=== PATIENT | male | born 1940 | race Caucasian/White ===

== ENCOUNTER → 2018-07-11 08:10 | Outpatient (CLI) | payer OTHER, SELFPAY ==
[2018-07-11 09:56] LABS: Alanine Aminotransferase 25 IU/L (21-72); Albumin 4.4 g/dL (3.5-5.0); Albumin Globulin Ratio 1.6 (1.0-2.8); Alkaline Phosphatase 58 U/L (38-126); Aspartate Aminotransferase 31 IU/L (17-59); BUN Creatinine Ratio 22.9 (6-22); Bilirubin Total 0.8 mg/dL (0.2-1.3); Blood Urea Nitrogen 16 mg/dL (9-20); Carbon Dioxide 29 mmol/L (22-32); Chloride 101 mmol/L (98-107); Estimated Glomerular Filt Rate > 60.0 mL/min (>60); Globulin 2.8 g/dL (1.7-4.1); Glucose 122 mg/dL (80-110); HEMOLYSIS 26 (0-50); Sodium 139 mmol/L (137-145); Total Protein 7.2 g/dL (6.3-8.2)
[2018-07-11 10:03] LABS: Vitamin D 25 Hydroxy (D3) 32.7 ng/mL (30.0-100.0)
== END ==
PROVIDERS: PCP Student in an Organized Health Care Education/Training Program; Visit Provider Student in an Organized Health Care Education/Training Program
DX: E78.5 Hyperlipidemia, unspecified (principal); N40.1 Benign prostatic hyperplasia with lower urinary tract symptoms; E55.9 Vitamin D deficiency, unspecified; Z79.899 Other long term (current) drug therapy
CPT/HCPCS: 36415; 80053; 82306

== ENCOUNTER → 2019-11-27 09:43 | Outpatient (CLI) | payer OTHER, SELFPAY ==
[2019-11-27 11:15] LABS: BUN Creatinine Ratio 16.7 (6-22); Blood Urea Nitrogen 12 mg/dL (9-20); Calcium 8.9 mg/dL (8.4-10.2); Carbon Dioxide 31 mmol/L (22-32); Chloride 102 mmol/L (98-107); Estimated Glomerular Filt Rate > 60.0 mL/min (>60); Glucose 99 mg/dL (80-110); HEMOLYSIS < 15 (0-50); Potassium 4.1 mmol/L (3.4-5.1); Sodium 138 mmol/L (137-145)
== END ==
PROVIDERS: PCP Student in an Organized Health Care Education/Training Program; Referring Provider Student in an Organized Health Care Education/Training Program; Visit Provider Student in an Organized Health Care Education/Training Program
DX: Z79.899 Other long term (current) drug therapy (principal)
CPT/HCPCS: 36415; 80048

== ENCOUNTER → 2021-02-08 10:39 | Outpatient (CLI) | payer OTHER, SELFPAY ==
[2021-02-08 11:34] LABS: Hematocrit 46.7 % (41-53); Hemoglobin 15.9 g/dL (13.5-17.5); Mean Corpuscular HGB Conc 34.1 % (30-36); Mean Corpuscular Hemoglobin 31.3 PG (26-34); Mean Corpuscular Volume 91.6 fL (80-100); Platelet Count 156 X10^3/uL (150-400); Red Cell Distribution Width 13.1 % (11.6-14.8); White Blood Cell Count 7.4 X10^3/uL (4.5-11.0)
[2021-02-08 12:10] LABS: BUN Creatinine Ratio 16.3 (6-22); Blood Urea Nitrogen 13 mg/dL (9-20); Calcium 9.2 mg/dL (8.4-10.2); Carbon Dioxide 31 mmol/L (22-32); Chloride 103 mmol/L (98-107); Cholesterol 170 mg/dL (140-199); Estimated Glomerular Filt Rate > 60.0 mL/min (>60); Glucose 106 mg/dL (80-110); HDL Cholesterol 55 mg/dL (40-60); HEMOLYSIS < 15 (0-50); LDL Cholesterol Calculated 93 mg/dL (<100); Potassium 4.3 mmol/L (3.4-5.1); Sodium 139 mmol/L (137-145); Triglycerides 109 mg/dL (35-150)
== END ==
PROVIDERS: PCP Student in an Organized Health Care Education/Training Program; Referring Provider Student in an Organized Health Care Education/Training Program; Visit Provider Student in an Organized Health Care Education/Training Program
DX: E78.5 Hyperlipidemia, unspecified (principal); Z79.899 Other long term (current) drug therapy
CPT/HCPCS: 36415; 80048; 80061; 85027

== ENCOUNTER 2021-11-29 15:30 | Outpatient (RCR) | payer OTHER, SELFPAY ==
--- NOTE | 2021-07-28 16:24 | ST.OPIE ---
Visit Care Team Role Provider Type Ángel Barton MD Attending Provider Physician Family Provider Primary Care Provider Referring Provider Specialty: Internal Medicine Address: [address] [place] [address], [address], [place], [address] Email: [email or web address] Speech-Language Pathology Initial Evaluation SOFTWARE REQUIREMENTS ENGINEER Adult Cognitive Linguistic Eval Start: 07/28/21 12:59 Freq: Status: Active Protocol: Document 07/28/21 13:00 MG (Rec: 07/28/21 13:23 MG [id number]) Adult Cognitive Linguistic Evaluation Session Time Visit Start Time 08:30 Visit Stop Time 09:30 Total Visit Minutes 60 Visit Information Visit Number 1 Plan of Care Dates 07/28/2021-11/27/[address] [facility] Setting Assessment Location Outpatient Care Visit Type Note Type Initial evaluation Next Note Type Next Note Type Treatment Note Patient Information Identification Type Name Patient History Pt reports that about a year prior, he has noticed cognitive difficulties, specifically around short term memory and word retrieval abilities. He reports he has the hardest time following recipes for cooking, remembering names or people, math calculations, and learning/retaining new information. 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 He reports he will often misplace tools and get frustrated trying to find them when he needs them. Pt has no prior history of memory difficulties , but does note his has Alzheimers. He reportedly lives in his home by himself. Pt currently uses a monthly interstate planner and hard copies of appointments to remember events. Pt also reported he has a large white board at home with all to-do items ( appointments, grocery lists, etc) that he will check multiple times daily when he needs to. Language(s) Spoken in the Home [place] Education Level GERRY Occupation Status Retired Hearing Hearing Level Normal Vision Vision Status Impaired Comments Does wear glasses Previous Therapy Previous Speech-Language Therapy Yes History of Therapy Pt reports he was in in May or June (he cannot recall which month) and was assessed by our SOFTWARE REQUIREMENTS ENGINEER team. No records at this time - may have been in for the cognitive/memory screening which referred for further evaluation. Subjective Patient Report Pt appeared slightly fatigued, as noted by his slouched posture. Pt noted he was tired from not having slept well the night prior and thought that the fatigue was also playing a role in his cognitive abilities this morning. Pt brought a monthly calendar with him on this day. Of note, the pt did exhibit some word finding difficulties x3 during this evaluation period. 1 word did come to him later on in the session; the others did not. Mental Status Alert,Responsive,Cooperative Assessment Oral Motor Examination Completed Yes Results No deficits noted in informal examination. Informal Assessment Receptive Language Normal Yes Expressive Language Normal No Expressive Language Impairment(s) Confrontation naming,Divergent naming Pragmatic Language Normal Yes Speech Normal Yes Cognition Normal No Cognitive Impairment(s) Short-term memory,Thought organization Formal Assessment Standardized Test/Screener Type [facility] Mental Status ([facility]) Administration Complete Results - indicating mild cognitive deficits. The pt had the most difficulty with rapid naming and some short term memory recall, which aligns to his current complaints and difficulties. Findings/Results Language Function Within functional limits Cognitive Function Mildly impaired Findings Pt presents with mild cognitive impairments at this time which affect his ability to effectively complete ADLs and communication with others. Main difficulties affect short term memory recall and Cognitive Communication Deficits Self-awareness of Cognitive- Predictive awareness (able to Communication Deficits predict problem; impact of impairments) Impact on Functioning Activity Limits/Particip.Rest. Mild: General Tasks and Demands Household Tasks Interpersonal Interactions Prognosis Prognosis Good Based on Other (comment) Comment Motivation, skills/strategies already in place Plan of Care Speech-Language Treatment Yes Frequency 1xweekly Duration 45 minutes Patient/Caregiver Education Described results of evaluation,Patient expressed understanding of evaluation, Patient expressed agreement with goals and treatment plans ,Patient requires further education/training Short Term Goals 1) Pt will participate in further education re: cognitive abilities, how they affect tasks, and strategies to implement. 2) Pt will utilize word retrieval strategies with one verbal cue to help reduce communication breakdowns. 3) Pt will utilize strategies independently in 80% of opportunities to participate fully in ADLs and report minimal frustrations. 4) Shelter Goals 1) Pt will utilize word retrieval strategies independently to help reduce communication breakdowns. 2) Pt will utilize strategies independently in 100% of opportunities to participate fully in ADLs and report no frustrations that occur. Discharge Recommendations Home
--- NOTE | 2021-07-28 16:24 | ST.OPPOC ---
Physical, Occupational & Speech Therapy At [facility] Visit Care Team Role Provider Type Ángel Barton MD Attending Provider Physician Family Provider Primary Care Provider Referring Provider Address: [address] [place] [address], [address], [place], [address] Speech Pathology Plan of Care Plan of Care Dates 07/28/2021-11/27/2021 Patient History Pt reports that about a year prior, he has noticed cognitive difficulties, specifically around short term memory and word retrieval abilities. He reports he has the hardest time following recipies for cooking, remembering names or people, math calculations, and learning /retainng new information. 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 He reports he will often misplace tools and get frustrated trying to find them when he needs them. Pt has no prior history of memory difficulties, but does note his has Alzheimers. He reportedly lives in his home by himself. Pt currently uses a monthly urban and regional planner and hard copies of appointments to remember events. Pt also reported he has a large whiteboard at home with all to-do items (appointments, grocery lists, etc) that he will check multiple times daily when he needs to. Short Term Goals 1) Pt will participate in further education re: cognitive abilities, how they affect tasks, and strategies to implement. 2) Pt will utilize word retrieval strategies with one verbal cue to help reduce communication breakdowns. 3) Pt will utilize strategies independently in 80% of opportunities to participate fully in ADLs and report minimal frustrations. 4) Senior Care Goals 1) Pt will utilize word retrieval strategies independently to help reduce communication breakdowns. 2) Pt will utilize strategies independently in 100% of opportunities to participate fully in ADLs and report no frustrations that occurr. Comment: Electronically Signed by: MILLER Soriano 07/28/21 [id number] If you are in agreement with this Plan of Care, please return a signed and dated copy. I have reviewed this Plan of Care and certify that the skilled therapy services above are required to meet the patient?s needs. Physician Signature Date Printed Name and Credentials Clinical Instructor Signature Printed Name and Credentials
--- NOTE | 2021-08-05 09:43 | ST.OPTN ---
Visit Care Team Role Provider Type Ángel Barton MD Attending Provider Physician Family Provider Primary Care Provider Referring Provider Address: [address] [place] [address], [address], [place], [address] DYE MAKER Treatment Note DYE MAKER Treatment Note Start: 07/28/21 12:59 Freq: Status: Active Protocol: Document 08/05/21 09:34 MG (Rec: 08/05/21 09:41 MG [id number]) Speech Pathology Treatment Note Session Time Visit Start Time 08:30 Visit Stop Time 09:30 Total Visit Minutes 60 Visit Information Visit Number 2 Plan of Care Dates 07/28/2021-11/27/2021 Setting Treatment Setting Outpatient Care Next Note Type Next Note Type Treatment Note General Information Patient History Pt reports that about a year prior, he has noticed cognitive difficulties, specifically around short term memory and word retrieval abilities. He reports he has the hardest time following recipes for cooking, remembering names or people, math calculations, and learning/retaining new information. 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 He reports he will often misplace tools and get frustrated trying to find them when he needs them. Pt has no prior history of memory difficulties , but does note his has Alzheimers. He reportedly lives in his home by himself. Pt currently uses a monthly airport planner and hard copies of appointments to remember events. Pt also reported he has a large whiteboard at home with all to-do items ( appointments, grocery lists, etc) that he will check multiple times daily when he needs to. Subjective Observations/Patient Presentation Vinay was on time to his appointment on this day. He reported to be tired as he had lost sleep over a technology problem he was dealing with. Patient Knowledge/Awareness of DYE MAKER Role Excellent in Treatment Parent/Caretake Knowledge/Awareness of Excellent DYE MAKER Role in Treatment Patient/Caregiver Compliance with Home Excellent Exercise Program Objective Short Term Goals 1) Pt will participate in further education re: cognitive abilities, how they affect tasks, and strategies to implement. 2) Pt will utilize word retrieval strategies with one verbal cue to help reduce communication breakdowns. 3) Pt will utilize strategies independently in 80% of opportunities to participate fully in ADLs and report minimal frustrations. 4) Skilled Nursing Goals 1) Pt will utilize word retrieval strategies independently to help reduce communication breakdowns. 2) Pt will utilize strategies independently in 100% of opportunities to participate fully in ADLs and report no frustrations that occur. Treatment Activities Vinay came in today and reported to this DYE MAKER about the things he had implemented from his previous appointment. He noted that keeping a journal, writing notes as reminders, describing words he can't remember the name of, and trying to get more rest are the most helpful for him. Vinay utilized strategies independently during this session for word finding difficulties. Vinay reported some frustrations still, such as forgetting steps in projects, but overall reported to be feeling less frustrated this past week with the new tools he has (i.e., slowing down when cooking/baking, making notes for memory, finding homes for items). DYE MAKER provided GPDR activity as he reported one thing that continues to be frustrating for him is steps of projects. Assessment Patient Response to Treatment Excellent Rehab Potential Good Impairments Identified Cognitive communication Progress Towards Goals Excellent Progress Assessment of Overall Progress Improving Assessment of Improvement Vinay implements and utilizes strategies immediately and already has noticed some differences in his abilities. He is very motivated in sessions, engaged in conversations, and asks clarifying questions when needed. Reviewed with Patient Goals,Progress Being Made,Home Exercise Program Patient/Caregiver Understanding Excellent Plan Amount of Therapy Recommended 4 Months Frequency of Treatment Once a Week Length of Session 45 Minutes Therapeutic Contents Cognitive-Linguistic Training, Home Exercise Program Provided Patient/Caregiver Instruction Home Exercise Program,Plan of Care,Questions/Concerns Therapy Recommendations Continue with Current Program
--- NOTE | 2021-08-11 12:18 | ST.OPTN ---
Visit Care Team Role Provider Type Ángel Barton MD Attending Provider Physician Family Provider Primary Care Provider Referring Provider Address: [address] [place] [address], [address], [place], [address] ADHESIVE BONDING MACHINE OPERATOR Treatment Note ADHESIVE BONDING MACHINE OPERATOR Treatment Note Start: 07/28/21 12:59 Freq: Status: Active Protocol: Document 08/11/21 11:32 MG (Rec: 08/11/21 12:18 MG [id number]) Speech Pathology Treatment Note Session Time Visit Start Time 10:30 Visit Stop Time 11:25 Total Visit Minutes 55 Visit Information Visit Number 3 Plan of Care Dates 07/28/2021-11/27/2021 Setting Treatment Setting Outpatient Care Next Note Type Next Note Type Treatment Note General Information Patient History Pt reports that about a year prior, he has noticed cognitive difficulties, specifically around short term memory and word retrieval abilities. He reports he has the hardest time following recipes for cooking, remembering names or people, math calculations, and learning/retaining new information. 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 He reports he will often misplace tools and get frustrated trying to find them when he needs them. Pt has no prior history of memory difficulties , but does note his has Alzheimers. He reportedly lives in his home by himself. Pt currently uses a monthly enterprise resource planner and hard copies of appointments to remember events. Pt also reported he has a large whiteboard at home with all to-do items ( appointments, grocery lists, etc) that he will check multiple times daily when he needs to. Subjective Observations/Patient Presentation Vinay was on time to his appointment on this day. He reported to be tired today again, but is working on getting more sleep and naps. Chief Complaint(s) Cognitive Patient Knowledge/Awareness of ADHESIVE BONDING MACHINE OPERATOR Role Excellent in Treatment Parent/Caretake Knowledge/Awareness of Excellent ADHESIVE BONDING MACHINE OPERATOR Role in Treatment Patient/Caregiver Compliance with Home Excellent Exercise Program Objective Short Term Goals 1) Pt will participate in further education re: cognitive abilities, how they affect tasks, and strategies to implement. 2) Pt will utilize word retrieval strategies with one verbal cue to help reduce communication breakdowns. 3) Pt will utilize strategies independently in 80% of opportunities to participate fully in ADLs and report minimal frustrations. 4) Windows Administrator Goals 1) Pt will utilize word retrieval strategies independently to help reduce communication breakdowns. 2) Pt will utilize strategies independently in 100% of opportunities to participate fully in ADLs and report no frustrations that occur. Treatment Activities ADHESIVE BONDING MACHINE OPERATOR and Vinay went over GPDR for tasks he worked on this week (i.e., developing an irrigation system for his garden). Used strategies effectively and independently. Did not have any word finding difficulties in this session. Discussed how he still gets frustrating learning things on his phone so discussed keeping a list of what he wants to learn on it and bring in next week to review and practice. Assessment Patient Response to Treatment Excellent Rehab Potential Good Impairments Identified Cognitive communication Progress Towards Goals Excellent Progress Assessment of Overall Progress Improving Assessment of Improvement Vinay implements and utilizes strategies immediately and already has noticed some differences in his abilities. He is very motivated in sessions, engaged in conversations, and asks clarifying questions when needed. Reviewed with Patient Goals,Progress Being Made,Home Exercise Program Patient/Caregiver Understanding Excellent Plan Amount of Therapy Recommended 4 Months Frequency of Treatment Once a Week Length of Session 45 Minutes Therapeutic Contents Cognitive-Linguistic Training, Home Exercise Program Provided Patient/Caregiver Instruction Home Exercise Program,Plan of Care,Questions/Concerns Therapy Recommendations Continue with Current Program
--- NOTE | 2021-08-19 10:49 | ST.OPTN ---
Visit Care Team Role Provider Type Ángel Barton MD Attending Provider Physician Family Provider Primary Care Provider Referring Provider Address: [address] [place] [address], [address], [place], [address] INSTALLER MOLDING AND TRIM Treatment Note INSTALLER MOLDING AND TRIM Treatment Note Start: 07/28/21 12:59 Freq: Status: Active Protocol: Document 08/19/21 08:36 LNK (Rec: 08/19/21 10:49 LNK [id number]) Speech Pathology Treatment Note Session Time Visit Start Time 10:30 Visit Stop Time 11:25 Total Visit Minutes 55 Visit Information Visit Number 3 Plan of Care Dates 07/28/2021-11/27/2021 Setting Treatment Setting Outpatient Care Next Note Type Next Note Type Treatment Note General Information Patient History Pt reports that about a year prior, he has noticed cognitive difficulties, specifically around short term memory and word retrieval abilities. He reports he has the hardest time following recipies for cooking, remembering names or people, math calculations, and learning/retainng new information. 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 He reports he will often misplace tools and get frustrated trying to find them when he needs them. Pt has no prior history of memory difficulties , but does note his has Alzheimers. He reportedly lives in his home by himself. Pt currently uses a monthly category planner and hard copies of appointments to remember events. Pt also reported he has a large whiteboard at home with all to-do items ( appointments, grocery lists, etc) that he will check multiple times daily when he needs to. Subjective Observations/Patient Presentation Vinay was on time to his appointment on this day. He reported to be tired today again, but is working on getting more sleep and naps. Chief Complaint(s) Cognitive Patient Knowledge/Awareness of INSTALLER MOLDING AND TRIM Role Excellent in Treatment Parent/Caretake Knowledge/Awareness of Excellent INSTALLER MOLDING AND TRIM Role in Treatment Patient/Caregiver Compliance with Home Excellent Exercise Program Objective Short Term Goals 1) Pt will participate in further education re: cognitive abilities, how they affect tasks, and strategies to implement. 2) Pt will utilize word retrieval strategies with one verbal cue to help reduce communication breakdowns. 3) Pt will utilize strategies independently in 80% of opportunities to participate fully in ADLs (i.e. working with his phone) and report minimal frustrations. 4) Rotary Drier Feeder Goals 1) Pt will utilize strategies independently in 100% of opportunities to participate fully in ADLs and report no frustrations that occur. 2) Pt will utilize word retrieval strategies independently to help reduce communication breakdowns. Treatment Activities Pt still gets frustrating learning things on his phone. Targeted taking pictures with phone, editing pictures and sending pictures via texting. Will target emailing. Step by step instructions, defining icons and practiced entire process x3 with pt. Homework to play with pictures /texting, etc Assessment Patient Response to Treatment Excellent Rehab Potential Good Impairments Identified Cognitive communication Progress Towards Goals Excellent Progress Assessment of Overall Progress Improving Assessment of Improvement Vinay is very motivated in sessions, engaged in conversations, and asks clarifying questions when needed. Reviewed with Patient Goals,Progress Being Made,Home Exercise Program Patient/Caregiver Understanding Excellent Plan Amount of Therapy Recommended 4 Months Frequency of Treatment Once a Week Length of Session 45 Minutes Therapeutic Contents Cognitive-Linguistic Training, Home Exercise Program Provided Patient/Caregiver Instruction Home Exercise Program,Plan of Care,Questions/Concerns Therapy Recommendations Continue with Current Program
--- NOTE | 2021-08-24 16:53 | ST.OPTN ---
Visit Care Team Role Provider Type Ángel Barton MD Attending Provider Physician Family Provider Primary Care Provider Referring Provider Address: [address] [place] [address], [address], [place], [address] RECIPROCATING DRILL OPERATOR Treatment Note RECIPROCATING DRILL OPERATOR Treatment Note Start: 07/28/21 12:59 Freq: Status: Active Protocol: Document 08/24/21 16:43 LNK (Rec: 08/24/21 16:53 LNK [id number]) Speech Pathology Treatment Note Session Time Visit Start Time 10:30 Visit Stop Time 11:25 Total Visit Minutes 60 Visit Information Visit Number 4 Plan of Care Dates 07/28/2021-11/27/2021 Setting Treatment Setting Outpatient Care Next Note Type Next Note Type Treatment Note General Information Patient History Pt reports that about a year prior, he has noticed cognitive difficulties, specifically around short term memory and word retrieval abilities. He reports he has the hardest time following recipes for cooking, remembering names or people, math calculations, and learning/retaining new information. 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 He reports he will often misplace tools and get frustrated trying to find them when he needs them. Pt has no prior history of memory difficulties , but does note his has Alzheimers. He reportedly lives in his home by himself. Pt currently uses a monthly regional planner and hard copies of appointments to remember events. Pt also reported he has a large white board at home with all to-do items ( appointments, grocery lists, etc) that he will check multiple times daily when he needs to. Subjective Observations/Patient Presentation Vinay was on time to his appointment on this day. He reported to be tired today again, but is working on getting more sleep and naps. Chief Complaint(s) Cognitive Patient Knowledge/Awareness of RECIPROCATING DRILL OPERATOR Role Excellent in Treatment Parent/Caretake Knowledge/Awareness of Excellent RECIPROCATING DRILL OPERATOR Role in Treatment Patient/Caregiver Compliance with Home Excellent Exercise Program Objective Short Term Goals 1) Pt will participate in further education re: cognitive abilities, how they affect tasks, and strategies to implement. 2) Pt will utilize word retrieval strategies with one verbal cue to help reduce communication breakdowns. 3) Pt will utilize strategies independently in 80% of opportunities to participate fully in ADLs (i.e. working with his phone) and report minimal frustrations. 4) Terminal Manager Goals 1) Pt will utilize strategies independently in 100% of opportunities to participate fully in ADLs and report no frustrations that occur. 2) Pt will utilize word retrieval strategies independently to help reduce communication breakdowns. Treatment Activities . Continued with targeting texting pictures to his friends and family from his cell phone. Pt expressed frustration with the process. Reviewed written directions and explanations of icons. Step by step instructions, defining icons and practiced entire process x3 with pt. Homework to play with pictures /texting, etc Assessment Patient Response to Treatment Excellent Rehab Potential Good Impairments Identified Cognitive communication Progress Towards Goals Excellent Progress Assessment of Overall Progress Improving Assessment of Improvement Vinay is very motivated in sessions, engaged in conversations, and asks clarifying questions when needed. Reviewed with Patient Goals,Progress Being Made,Home Exercise Program Patient/Caregiver Understanding Excellent Plan Amount of Therapy Recommended 4 Months Frequency of Treatment Once a Week Length of Session 45 Minutes Therapeutic Contents Cognitive-Linguistic Training, Home Exercise Program Provided Patient/Caregiver Instruction Home Exercise Program,Plan of Care,Questions/Concerns Therapy Recommendations Continue with Current Program
--- NOTE | 2021-08-31 14:08 | ST.OPTN ---
Addendum entered and electronically signed by Lisa Olvera 09/01/21 15:38: Pt texted me successfully after he returned home! Original Note: Visit Care Team Role Provider Type Ángel Barton MD Attending Provider Physician Family Provider Primary Care Provider Referring Provider Address: [address] [place] [address], [address], [address] MANAGER ORDER Treatment Note MANAGER ORDER Treatment Note Start: 07/28/21 12:59 Freq: Status: Active Protocol: Document 08/31/21 14:02 SHANEK (Rec: 08/31/21 14:08 LNK [id number]) Speech Pathology Treatment Note Session Time Visit Start Time 10:30 Visit Stop Time 11:25 Total Visit Minutes 60 Visit Information Visit Number 5 Plan of Care Dates 07/28/2021-11/27/2021 Setting Treatment Setting Outpatient Care Next Note Type Next Note Type Treatment Note General Information Patient History Pt reports that about a year prior, he has noticed cognitive difficulties, specifically around short term memory and word retrieval abilities. He reports he has the hardest time following recipies for cooking, remembering names or people, math calculations, and learning/retainng new information. 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 He reports he will often misplace tools and get frustrated trying to find them when he needs them. Pt has no prior history of memory difficulties , but does note his has Alzheimers. He reportedly lives in his home by himself. Pt currently uses a monthly order planner and hard copies of appointments to remember events. Pt also reported he has a large whiteboard at home with all to-do items ( appointments, grocery lists, etc) that he will check multiple times daily when he needs to. Subjective Observations/Patient Presentation . Chief Complaint(s) Cognitive Patient Knowledge/Awareness of MANAGER ORDER Role Excellent in Treatment Parent/Caretake Knowledge/Awareness of Excellent MANAGER ORDER Role in Treatment Patient/Caregiver Compliance with Home Excellent Exercise Program Objective Short Term Goals 1) Pt will participate in further education re: cognitive abilities, how they affect tasks, and strategies to implement. 2) Pt will utilize word retrieval strategies with one verbal cue to help reduce communication breakdowns. 3) Pt will utilize strategies independently in 80% of opportunities to participate fully in ADLs (i.e. working with his phone) and report minimal frustrations. 4) Care Home Goals 1) Pt will utilize strategies independently in 100% of opportunities to participate fully in ADLs and report no frustrations that occur. 2) Pt will utilize word retrieval strategies independently to help reduce communication breakdowns. Treatment Activities Continued targeting Pt's use of his phone(texting) to communicate with his family and friends. Reviewed step by step instructions. Pt practiced entire sequence 7x successfully by the end of the session Homework to text e family members Assessment Patient Response to Treatment Excellent Rehab Potential Good Impairments Identified Cognitive communication Progress Towards Goals Excellent Progress Assessment of Overall Progress Improving Assessment of Improvement Continued with targeting use of his [employer] smart phone. Vinay has been tryin to use his phone for texting his friends and family. Pt expressed frustration with the process. Reviewed with Patient Goals,Progress Being Made,Home Exercise Program Patient/Caregiver Understanding Excellent Plan Amount of Therapy Recommended 4 Months Frequency of Treatment Once a Week Length of Session 45 Minutes Therapeutic Contents Cognitive-Linguistic Training, Home Exercise Program Provided Patient/Caregiver Instruction Home Exercise Program,Plan of Care,Questions/Concerns Therapy Recommendations Continue with Current Program
--- NOTE | 2021-09-07 17:09 | ST.OPTN ---
Visit Care Team Role Provider Type Ángel Barton MD Attending Provider Physician Family Provider Primary Care Provider Referring Provider Address: [address] [place] [address], [address], [place], [address] APPLICATOR SPRAYER Treatment Note APPLICATOR SPRAYER Treatment Note Start: 09/07/21 10:35 Freq: Status: Active Protocol: Document 09/07/21 17:04 SHANEK (Rec: 09/07/21 17:09 LNK [id number]) Speech Pathology Treatment Note Session Time Visit Start Time 10:30 Visit Stop Time 11:25 Total Visit Minutes 60 Visit Information Visit Number 6 Plan of Care Dates 07/28/2021-11/27/2021 Setting Treatment Setting Outpatient Care Next Note Type Next Note Type Treatment Note General Information Patient History Pt reports that about a year prior, he has noticed cognitive difficulties, specifically around short term memory and word retrieval abilities. He reports he has the hardest time following recipes for cooking, remembering names or people, math calculations, and learning/retaining new information. 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 He reports he will often misplace tools and get frustrated trying to find them when he needs them. Pt has no prior history of memory difficulties , but does note his has Alzheimers. He reportedly lives in his home by himself. Pt currently uses a monthly vacation planner and hard copies of appointments to remember events. Pt also reported he has a large white board at home with all to-do items ( appointments, grocery lists, etc) that he will check multiple times daily when he needs to. Subjective Observations/Patient Presentation . Chief Complaint(s) Cognitive Patient Knowledge/Awareness of APPLICATOR SPRAYER Role Excellent in Treatment Parent/Caretake Knowledge/Awareness of Excellent APPLICATOR SPRAYER Role in Treatment Patient/Caregiver Compliance with Home Excellent Exercise Program Objective Short Term Goals 1) Pt will participate in further education re: cognitive abilities, how they affect tasks, and strategies to implement. 2) Pt will utilize word retrieval strategies with one verbal cue to help reduce communication breakdowns. 3) Pt will utilize strategies independently in 80% of opportunities to participate fully in ADLs (i.e. working with his phone) and report minimal frustrations. 4) Shelter Goals 1) Pt will utilize strategies independently in 100% of opportunities to participate fully in ADLs and report no frustrations that occur. 2) Pt will utilize word retrieval strategies independently to help reduce communication breakdowns. Treatment Activities Pt demonstrated successful texting this past week. he did sent 2 texts to me. pt feels pretty confident in his ability to make and answer phone calls and text people from his phone. Today we targeted adding a photo to his texts. Pt has expressed that he wants to share his garden with his relatives and children. Pt may increase was able to successfully send a photo with text to his [id number] today. She responded before the session ended. Assessment Patient Response to Treatment Excellent Rehab Potential Good Impairments Identified Cognitive communication Progress Towards Goals Excellent Progress Assessment of Overall Progress Improving Assessment of Improvement Continued with targeting use of his [employer] smart phone. Reviewed with Patient Goals,Progress Being Made,Home Exercise Program Patient/Caregiver Understanding Excellent Plan Amount of Therapy Recommended 4 Months Frequency of Treatment Once a Week Length of Session 45 Minutes Therapeutic Contents Cognitive-Linguistic Training, Home Exercise Program Provided Patient/Caregiver Instruction Home Exercise Program,Plan of Care,Questions/Concerns Therapy Recommendations Continue with Current Program
--- NOTE | 2021-09-09 16:56 | ST.OPTN ---
Visit Care Team Role Provider Type Ángel Barton MD Attending Provider Physician Family Provider Primary Care Provider Referring Provider Address: [address] [place] [address], [address], [place], [address] SOCIAL WELFARE CLERK Treatment Note SOCIAL WELFARE CLERK Treatment Note Start: 09/07/21 10:35 Freq: Status: Active Protocol: Document 09/09/21 16:49 LNK (Rec: 09/09/21 16:56 LNK [id number]) Speech Pathology Treatment Note Session Time Visit Start Time 10:30 Visit Stop Time 11:25 Total Visit Minutes 60 Visit Information Visit Number 7 Plan of Care Dates 07/28/2021-11/27/2021 Setting Treatment Setting Outpatient Care Next Note Type Next Note Type Treatment Note General Information Patient History Pt reports that about a year prior, he has noticed cognitive difficulties, specifically around short term memory and word retrieval abilities. He reports he has the hardest time following recipies for cooking, remembering names or people, math calculations, and learning/retainng new information. 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 He reports he will often misplace tools and get frustrated trying to find them when he needs them. Pt has no prior history of memory difficulties , but does note his has Alzheimers. He reportedly lives in his home by himself. Pt currently uses a monthly supply planner and hard copies of appointments to remember events. Pt also reported he has a large whiteboard at home with all to-do items ( appointments, grocery lists, etc) that he will check multiple times daily when he needs to. Subjective Observations/Patient Presentation . Chief Complaint(s) Cognitive Patient Knowledge/Awareness of SOCIAL WELFARE CLERK Role Excellent in Treatment Parent/Caretake Knowledge/Awareness of Excellent SOCIAL WELFARE CLERK Role in Treatment Patient/Caregiver Compliance with Home Excellent Exercise Program Objective Short Term Goals 1) Pt will participate in further education re: cognitive abilities, how they affect tasks, and strategies to implement. 2) Pt will utilize word retrieval strategies with one verbal cue to help reduce communication breakdowns. 3) Pt will utilize strategies independently in 80% of opportunities to participate fully in ADLs (i.e. working with his phone) and report minimal frustrations. 4) Retirement Goals 1) Pt will utilize strategies independently in 100% of opportunities to participate fully in ADLs and report no frustrations that occur. 2) Pt will utilize word retrieval strategies independently to help reduce communication breakdowns. Treatment Activities Pt demonstrated successful texting this past week. He sent 1 text accompanied by a picture successfully to me. Pt feels pretty confident in his ability to make and answer phone calls and text people with and without pictures from his phone. Today we targeted editing photos. 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 Assessment Patient Response to Treatment Excellent Rehab Potential Good Impairments Identified Cognitive communication Progress Towards Goals Excellent Progress Assessment of Overall Progress Improving Assessment of Improvement Pt has made good progress but he has many notes all over the place for his phone. Suggested we organize the notes he has in a notebook or binder, so that he can keep track of the directions he currently has. He agreed. Additionally, he has expressed the desire to understand and be able to manage his phone apps and email account. Reviewed with Patient Goals,Progress Being Made,Home Exercise Program Patient/Caregiver Understanding Excellent Plan Amount of Therapy Recommended 4 Months Frequency of Treatment Once a Week Length of Session 45 Minutes Therapeutic Contents Cognitive-Linguistic Training, Home Exercise Program Provided Patient/Caregiver Instruction Home Exercise Program,Plan of Care,Questions/Concerns Therapy Recommendations Continue with Current Program
--- NOTE | 2021-09-14 13:54 | ST.OPTN ---
Visit Care Team Role Provider Type Ángel Barton MD Attending Provider Physician Family Provider Primary Care Provider Referring Provider Address: [address] [place] [address], [address], [place], [address] WARP TYING MACHINE TENDER Treatment Note WARP TYING MACHINE TENDER Treatment Note Start: 09/07/21 10:35 Freq: Status: Active Protocol: Document 09/14/21 13:42 LNK (Rec: 09/14/21 13:52 LNK [id number]) Speech Pathology Treatment Note Session Time Visit Start Time 10:30 Visit Stop Time 11:25 Total Visit Minutes 60 Visit Information Visit Number 8 Plan of Care Dates 07/28/2021-11/27/2021 Setting Treatment Setting Outpatient Care Next Note Type Next Note Type Treatment Note General Information Patient History Pt reports that about a year prior, he has noticed cognitive difficulties, specifically around short term memory and word retrieval abilities. He reports he has the hardest time following recipies for cooking, remembering names or people, math calculations, and learning/retainng new information. 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 He reports he will often misplace tools and get frustrated trying to find them when he needs them. Pt has no prior history of memory difficulties , but does note his has Alzheimers. He reportedly lives in his home by himself. Pt currently uses a monthly conservation planner and hard copies of appointments to remember events. Pt also reported he has a large whiteboard at home with all to-do items ( appointments, grocery lists, etc) that he will check multiple times daily when he needs to. Subjective Observations/Patient Presentation . Chief Complaint(s) Cognitive Patient Knowledge/Awareness of WARP TYING MACHINE TENDER Role Excellent in Treatment Parent/Caretake Knowledge/Awareness of Excellent WARP TYING MACHINE TENDER Role in Treatment Patient/Caregiver Compliance with Home Excellent Exercise Program Objective Short Term Goals 1) Pt will participate in further education re: cognitive abilities, how they affect tasks, and strategies to implement. 2) Pt will utilize word retrieval strategies with one verbal cue to help reduce communication breakdowns. 3) Pt will utilize strategies independently in 80% of opportunities to participate fully in ADLs (i.e. working with his phone) and report minimal frustrations. 4) Fci Goals 1) Pt will utilize strategies independently in 100% of opportunities to participate fully in ADLs and report no frustrations that occur. 2) Pt will utilize word retrieval strategies independently to help reduce communication breakdowns. Treatment Activities Collaboration with pt in making a phone tips memory book for pt. Pt listed ~10 functions he would like to use his phone for. Step by step procedures for making receiving phone calls, taking pictures, texting pictures, texting only, were entered into his notebook. Hep: pt go thru procedures with his phone at home practicing daily and noting areas he continues to have difficulty with. Assessment Patient Response to Treatment Excellent Rehab Potential Good Impairments Identified Cognitive communication Progress Towards Goals Excellent Progress Assessment of Overall Progress Improving Reviewed with Patient Goals,Progress Being Made,Home Exercise Program Patient/Caregiver Understanding Excellent Plan Amount of Therapy Recommended 4 Months Frequency of Treatment Once a Week Length of Session 45 Minutes Therapeutic Contents Cognitive-Linguistic Training, Home Exercise Program Provided Patient/Caregiver Instruction Home Exercise Program,Plan of Care,Questions/Concerns Therapy Recommendations Continue with Current Program
--- NOTE | 2021-09-23 10:44 | ST.OPTN ---
Visit Care Team Role Provider Type Ángel Barton MD Attending Provider Physician Family Provider Primary Care Provider Referring Provider Address: [address] [place] [address], [address], [place], [address] WINDSMITH Treatment Note WINDSMITH Treatment Note Start: 09/07/21 10:35 Freq: Status: Active Protocol: Document 09/23/21 10:39 LNK (Rec: 09/23/21 10:44 LNK [id number]) Speech Pathology Treatment Note Session Time Visit Start Time 10:30 Visit Stop Time 11:25 Total Visit Minutes 70 Visit Information Visit Number 9 Plan of Care Dates 07/28/2021-11/27/2021 Setting Treatment Setting Outpatient Care Next Note Type Next Note Type Treatment Note General Information Patient History Pt reports that about a year prior, he has noticed cognitive difficulties, specifically around short term memory and word retrieval abilities. He reports he has the hardest time following recipes for cooking, remembering names or people, math calculations, and learning/retaining new information. 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 He reports he will often misplace tools and get frustrated trying to find them when he needs them. Pt has no prior history of memory difficulties , but does note his has Alzheimers. He reportedly lives in his home by himself. Pt currently uses a monthly planner/scheduler and hard copies of appointments to remember events. Pt also reported he has a large whiteboard at home with all to-do items ( appointments, grocery lists, etc) that he will check multiple times daily when he needs to. Subjective Observations/Patient Presentation . Chief Complaint(s) Cognitive Patient Knowledge/Awareness of WINDSMITH Role Excellent in Treatment Parent/Caretake Knowledge/Awareness of Excellent WINDSMITH Role in Treatment Patient/Caregiver Compliance with Home Excellent Exercise Program Objective Short Term Goals 1) Pt will participate in further education re: cognitive abilities, how they affect tasks, and strategies to implement. 2) Pt will utilize word retrieval strategies with one verbal cue to help reduce communication breakdowns. 3) Pt will utilize strategies independently in 80% of opportunities to participate fully in ADLs (i.e. working with his phone) and report minimal frustrations. 4) Correction Goals 1) Pt will utilize strategies independently in 100% of opportunities to participate fully in ADLs and report no frustrations that occur. 2) Pt will utilize word retrieval strategies independently to help reduce communication breakdowns. Treatment Activities Collaberation and review of pt' s phone tips memory book. Pt reviewed and practiced each procedure step x step for making receiving phone calls, taking pictures, texting pictures, were clarified and followed via his notebook. Pt is gaining confidence in hiss ability to sty in communication with his friends and family. Pt is a and lives alone making these skills important to maintain communication and personal relationships. HEP: review procedures with his phone at home practicing daily and noting areas he contines to have difficulty with. Assessment Patient Response to Treatment Excellent Rehab Potential Good Impairments Identified Cognitive communication Progress Towards Goals Excellent Progress Assessment of Overall Progress Improving Reviewed with Patient Goals,Progress Being Made,Home Exercise Program Patient/Caregiver Understanding Excellent Plan Amount of Therapy Recommended 4 Months Frequency of Treatment Once a Week Length of Session 45 Minutes Therapeutic Contents Cognitive-Linguistic Training, Home Exercise Program Provided Patient/Caregiver Instruction Home Exercise Program,Plan of Care,Questions/Concerns Therapy Recommendations Continue with Current Program
--- NOTE | 2021-10-14 14:40 | ST.OPTN ---
Visit Care Team Role Provider Type Ángel Barton MD Attending Provider Physician Family Provider Primary Care Provider Referring Provider Address: [address] [place] [address], [address], [place], [address] SALESFORCE SPECIALIST Treatment Note SALESFORCE SPECIALIST Treatment Note Start: 09/07/21 10:35 Freq: Status: Active Protocol: Document 10/14/21 11:56 LNK (Rec: 10/14/21 14:37 LNK [id number]) Speech Pathology Treatment Note Session Time Visit Start Time 10:30 Visit Stop Time 11:25 Total Visit Minutes 70 Visit Information Visit Number 10 Plan of Care Dates 07/28/2021-11/27/2021 Setting Treatment Setting Outpatient Care Next Note Type Next Note Type Treatment Note General Information Patient History Pt reports that about a year prior, he has noticed cognitive difficulties, specifically around short term memory and word retrieval abilities. He reports he has the hardest time following recipies for cooking, remembering names or people, math calculations, and learning/retainng new information. 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 He reports he will often misplace tools and get frustrated trying to find them when he needs them. Pt has no prior history of memory difficulties , but does note his has Alzheimers. He reportedly lives in his home by himself. Pt currently uses a monthly conference planner and hard copies of appointments to remember events. Pt also reported he has a large whiteboard at home with all to-do items ( appointments, grocery lists, etc) that he will check multiple times daily when he needs to. Subjective Observations/Patient Presentation . Chief Complaint(s) Cognitive Patient Knowledge/Awareness of SALESFORCE SPECIALIST Role Excellent in Treatment Parent/Caretake Knowledge/Awareness of Excellent SALESFORCE SPECIALIST Role in Treatment Patient/Caregiver Compliance with Home Excellent Exercise Program Objective Short Term Goals 1) Pt will participate in further education re: cognitive abilities, how they affect tasks, and strategies to implement. MET 2) Pt will utilize word retrieval strategies with one verbal cue to help reduce communication breakdowns. ABANDONED PER PATIENT REQUEST 3) Pt will utilize strategies independently in 80% of opportunities to participate fully in ADLs (i.e. working with his phone) and report minimal frustrations. ONGOING [facility] Goals 1) Pt will utilize strategies independently in 100% of opportunities to participate fully in ADLs and report no frustrations that occur. 2) Pt will utilize word retrieval strategies independently to help reduce communication breakdowns. Treatment Activities Collaboration and review of pt' s phone tips memory book. Pt reported that he has been texting, sending pictures and calling/answering the phone with minimal difficulty. Pt wanted to extend his use of the phone maps to help him navigate around [place] and [place]. Reviewed the procedure step x step for setting a destination, getting the map and getting audio instructions . Step by step directions were written for him in his notebook. Pt feels overwhelmed at times. Assessment Patient Response to Treatment Excellent Rehab Potential Good Impairments Identified Cognitive communication Progress Towards Goals Excellent Progress Assessment of Overall Progress Improving Assessment of Improvement Pt is gaining confidence in his ability to stay in communication with his friends and family. Pt is a and lives alone making these skills important tto maintain communication and personal relationships. HEP: review procedures with his phone at home practicing daily and noting areas he continues to have difficulty with. Reviewed with Patient Goals,Progress Being Made,Home Exercise Program Patient/Caregiver Understanding Excellent Plan Amount of Therapy Recommended 4 Months Frequency of Treatment Once a Week Length of Session 45 Minutes Therapeutic Contents Cognitive-Linguistic Training, Home Exercise Program Provided Patient/Caregiver Instruction Home Exercise Program,Plan of Care,Questions/Concerns Therapy Recommendations Continue with Current Program
--- NOTE | 2021-10-14 14:41 | ST.OPPOC ---
Physical, Occupational & Speech Therapy At [facility] Visit Care Team Role Provider Type Ángel Barton MD Attending Provider Physician Family Provider Primary Care Provider Referring Provider Address: [address] [place] [address], [address], [place], [address] Speech Pathology Plan of Care Plan of Care Dates 07/28/2021-11/27/2021 Patient History Pt reports that about a year prior, he has noticed cognitive difficulties, specifically around short term memory and word retrieval abilities. He reports he has the hardest time following recipes for cooking, remembering names or people, math calculations, and learning /retaining new information. 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 He reports he will often misplace tools and get frustrated trying to find them when he needs them. Pt has no prior history of memory difficulties, but does note his has Alzheimers. He reportedly lives in his home by himself. Pt currently uses a monthly buyer planner and hard copies of appointments to remember events. Pt also reported he has a large whiteboard at home with all to-do items (appointments, grocery lists, etc) that he will check multiple times daily when he needs to. Impairments Identified Cognitive communication Short Term Goals 1) Pt will participate in further education re: cognitive abilities, how they affect tasks, and strategies to implement. MET 2) Pt will utilize word retrieval strategies with one verbal cue to help reduce communication breakdowns.ABANDONED PER PATIENT REQUEST 3) Pt will utilize strategies independently in 80% of opportunities to participate fully in ADLs (i.e. working with his phone) and report minimal frustrations. ONGOING [facility] Goals 1) Pt will utilize strategies independently in 100% of opportunities to participate fully in ADLs and report no frustrations that occur. 2) Pt will utilize word retrieval strategies independently to help reduce communication breakdowns. Progress Towards Goals Excellent Progress Comment: Electronically Signed by: MILLER Olvera 10/14/21 9653 If you are in agreement with this Plan of Care, please return a signed and dated copy. I have reviewed this Plan of Care and certify that the skilled therapy services above are required to meet the patient?s needs. Physician Signature Date Printed Name and Credentials Clinical Instructor Signature Printed Name and Credentials
--- NOTE | 2021-10-28 15:15 | ST.OPTN ---
Visit Care Team Role Provider Type Ángel Barton MD Attending Provider Physician Family Provider Primary Care Provider Referring Provider Address: [address] [place] [address], [address], [place], [address] FOUNDING PARTNER Treatment Note FOUNDING PARTNER Treatment Note Start: 09/07/21 10:35 Freq: Status: Active Protocol: Document 10/28/21 15:09 LNK (Rec: 10/28/21 15:15 LNK [id number]) Speech Pathology Treatment Note Session Time Visit Start Time 10:30 Visit Stop Time 11:25 Total Visit Minutes 70 Visit Information Visit Number 11 Plan of Care Dates 07/28/2021-11/27/2021 Setting Treatment Setting Outpatient Care Next Note Type Next Note Type Treatment Note General Information Patient History Pt reports that about a year prior, he has noticed cognitive difficulties, specifically around short term memory and word retrieval abilities. He reports he has the hardest time following recipies for cooking, remembering names or people, math calculations, and learning/retainng new information. 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 He reports he will often misplace tools and get frustrated trying to find them when he needs them. Pt has no prior history of memory difficulties , but does note his has Alzheimers. He reportedly lives in his home by himself. Pt currently uses a monthly wedding planner and hard copies of appointments to remember events. Pt also reported he has a large whiteboard at home with all to-do items ( appointments, grocery lists, etc) that he will check multiple times daily when he needs to. Subjective Observations/Patient Presentation . Chief Complaint(s) Cognitive Patient Knowledge/Awareness of FOUNDING PARTNER Role Excellent in Treatment Parent/Caretake Knowledge/Awareness of Excellent FOUNDING PARTNER Role in Treatment Patient/Caregiver Compliance with Home Excellent Exercise Program Objective Short Term Goals 1) Pt will participate in further education re: cognitive abilities, how they affect tasks, and strategies to implement. MET 2) Pt will utilize word retrieval strategies with one verbal cue to help reduce communication breakdowns. ABANDONED PER PATIENT REQUEST 3) Pt will utilize strategies independently in 80% of opportunities to participate fully in ADLs (i.e. working with his phone) and report minimal frustrations. ONGOING [facility]-Way Goals 1) Pt will utilize strategies independently in 100% of opportunities to participate fully in ADLs and report no frustrations that occur. 2) Pt will utilize word retrieval strategies independently to help reduce communication breakdowns. Treatment Activities Collaberation and review of pt' s phone tips memory book. Pt reported that he has been texting, sending pictures and calling/answering the phone and using [employer] to navigate with minimal difficulty. Pt wanted to extend his use of the phone and understand System icon. Introduced the different settings that he can use to program his phone. pt noted that he will continue to investigate the Systems in his phone. Assessment Patient Response to Treatment Excellent Rehab Potential Good Impairments Identified Cognitive communication Progress Towards Goals Excellent Progress Assessment of Overall Progress Improving Assessment of Improvement Pt is gaining confidence in his ability to stay in communication with his friends and family. Pt is a and lives alone making these skills important to maintain communication and personal relationships. HEP: review procedures with his phone at home practicing daily and noting areas he continues to have difficulty with. Reviewed with Patient Goals,Progress Being Made,Home Exercise Program Patient/Caregiver Understanding Excellent Plan Amount of Therapy Recommended 4 Months Frequency of Treatment Once a Week Length of Session 45 Minutes Therapeutic Contents Cognitive-Linguistic Training, Home Exercise Program Provided Patient/Caregiver Instruction Home Exercise Program,Plan of Care,Questions/Concerns Therapy Recommendations Continue with Current Program
--- NOTE | 2021-11-04 13:04 | ST.OPTN ---
Visit Care Team Role Provider Type Ángel Barton MD Attending Provider Physician Family Provider Primary Care Provider Referring Provider Address: [address] [place] [address], [address], [place], [address] LEAD OPERATOR Treatment Note LEAD OPERATOR Treatment Note Start: 09/07/21 10:35 Freq: Status: Active Protocol: Document 11/04/21 12:57 LNK (Rec: 11/04/21 13:04 LNK [id number]) Speech Pathology Treatment Note Session Time Visit Start Time 10:30 Visit Stop Time 11:25 Total Visit Minutes 60 Visit Information Visit Number 12 Plan of Care Dates 07/28/2021-11/27/2021 Setting Treatment Setting Outpatient Care Next Note Type Next Note Type Treatment Note General Information Patient History Pt reports that about a year prior, he has noticed cognitive difficulties, specifically around short term memory and word retrieval abilities. He reports he has the hardest time following recipes for cooking, remembering names or people, math calculations, and learning/retaining new information. 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 He reports he will often misplace tools and get frustrated trying to find them when he needs them. Pt has no prior history of memory difficulties , but does note his has Alzheimers. He reportedly lives in his home by himself. Pt currently uses a monthly vacation planner and hard copies of appointments to remember events. Pt also reported he has a large white board at home with all to-do items ( appointments, grocery lists, etc) that he will check multiple times daily when he needs to. Subjective Observations/Patient Presentation . Chief Complaint(s) Cognitive Patient Knowledge/Awareness of LEAD OPERATOR Role Excellent in Treatment Parent/Caretake Knowledge/Awareness of Excellent LEAD OPERATOR Role in Treatment Patient/Caregiver Compliance with Home Excellent Exercise Program Objective Short Term Goals 1) Pt will participate in further education re: cognitive abilities, how they affect tasks, and strategies to implement. MET 2) Pt will utilize word retrieval strategies with one verbal cue to help reduce communication breakdowns. ABANDONED PER PATIENT REQUEST 3) Pt will utilize strategies independently in 80% of opportunities to participate fully in ADLs (i.e. working with his phone) and report minimal frustrations. ONGOING Computer Numerical Control Machinist Goals 1) Pt will utilize strategies independently in 100% of opportunities to participate fully in ADLs and report no frustrations that occur. 2) Pt will utilize word retrieval strategies independently to help reduce communication breakdowns. Treatment Activities Collaboration and review of pt 's phone operations and notes he has made re:phone in his memory book. Pt reported that he has been texting, sending pictures, calling/answering the phone and using [employer] to navigate with minimal difficulty. Pt needed to System icon, contacts, internet and email operations of his phone. Pt's HEP is to practice these new application usage. Any ends are to be noted for review next session. Assessment Patient Response to Treatment Excellent Rehab Potential Good Impairments Identified Cognitive communication Progress Towards Goals Excellent Progress Assessment of Overall Progress Improving Assessment of Improvement Pt is gaining confidence in his ability to stay in communication with his friends and family. Pt is a and lives alone making these skills important to maintain communication and personal relationships. Pt's family all live in different states all over the [place]. HEP: review procedures/practice with his phone at home daily and noting areas he contines to have difficulty with. Reviewed with Patient Goals,Progress Being Made,Home Exercise Program Patient/Caregiver Understanding Excellent Plan Amount of Therapy Recommended 4 Months Frequency of Treatment Once a Week Length of Session 45 Minutes Therapeutic Contents Cognitive-Linguistic Training, Home Exercise Program Provided Patient/Caregiver Instruction Home Exercise Program,Plan of Care,Questions/Concerns Therapy Recommendations Continue with Current Program
--- NOTE | 2021-11-11 13:34 | ST.OPPOC ---
Physical, Occupational & Speech Therapy At [facility] Visit Care Team Role Provider Type Ángel Barton MD Attending Provider Physician Family Provider Primary Care Provider Referring Provider Address: [address] [place] [address], [address], [place], [address] Speech Pathology Plan of Care Plan of Care Dates 11/27/2021-12/28/21 Patient History Pt reports that about a year prior, he has noticed cognitive difficulties, specifically around short term memory and word retrieval abilities. He reports he has the hardest time following recipes for cooking, remembering names or people, math calculations, and learning /retaining new information. 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 He reports he will often misplace tools and get frustrated trying to find them when he needs them. Pt has no prior history of memory difficulties, but does note his has Alzheimers. He reportedly lives in his home by himself. Pt currently uses a monthly land planner and hard copies of appointments to remember events. Pt also reported he has a large white board at home with all to-do items (appointments, grocery lists, etc) that he will check multiple times daily when he needs to. Impairments Identified Cognitive communication Short Term Goals 1) Pt will participate in further education re: cognitive abilities, how they affect tasks, and strategies to implement. MET 2) Pt will utilize word retrieval strategies with one verbal cue to help reduce communication breakdowns.ABANDONED PER PATIENT REQUEST 3) Pt will utilize strategies independently in 80% of opportunities to participate fully in ADLs (i.e. working with his phone) and report minimal frustrations. ONGOING [facility] Goals 1) Pt will utilize strategies independently in 100% of opportunities to participate fully in ADLs and report no frustrations that occur. 2) Pt will utilize word retrieval strategies independently to help reduce communication breakdowns. Progress Towards Goals Excellent Progress Comment: Electronically Signed by: MILLER Olvera 11/11/21 4276 If you are in agreement with this Plan of Care, please return a signed and dated copy. I have reviewed this Plan of Care and certify that the skilled therapy services above are required to meet the patient?s needs. Physician Signature Date Printed Name and Credentials Clinical Instructor Signature Printed Name and Credentials
--- NOTE | 2021-11-18 17:14 | ST.OPTN ---
Visit Care Team Role Provider Type Ángel Barton MD Attending Provider Physician Family Provider Primary Care Provider Referring Provider Address: [address] [place] [address], [address], [place], [address] JAILKEEPER Treatment Note JAILKEEPER Treatment Note Start: 09/07/21 10:35 Freq: Status: Active Protocol: Document 11/18/21 13:30 LNK (Rec: 11/18/21 17:14 LNK [id number]) Speech Pathology Treatment Note Session Time Visit Start Time 10:30 Visit Stop Time 11:25 Total Visit Minutes 60 Visit Information Visit Number 14 Plan of Care Dates 11/27/2021-12/28/21 Setting Treatment Setting Outpatient Care Visit Type Note Type Re-Evaluation Next Note Type Next Note Type Treatment Note General Information Patient History Pt reports that about a year prior, he has noticed cognitive difficulties, specifically around short term memory and word retrieval abilities. He reports he has the hardest time following recipes for cooking, remembering names or people, math calculations, and learning/retaining new information. 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 He reports he will often misplace tools and get frustrated trying to find them when he needs them. Pt has no prior history of memory difficulties , but does note his has Alzheimers. He reportedly lives in his home by himself. Pt currently uses a monthly certified financial planner and hard copies of appointments to remember events. Pt also reported he has a large whiteboard at home with all to-do items ( appointments, grocery lists, etc) that he will check multiple times daily when he needs to. Subjective Observations/Patient Presentation . Chief Complaint(s) Cognitive Patient Knowledge/Awareness of JAILKEEPER Role Excellent in Treatment Parent/Caretake Knowledge/Awareness of Excellent JAILKEEPER Role in Treatment Patient/Caregiver Compliance with Home Excellent Exercise Program Objective Short Term Goals 1) Pt will participate in further education re: cognitive abilities, how they affect tasks, and strategies to implement. MET 2) Pt will utilize word retrieval strategies with one verbal cue to help reduce communication breakdowns. ABANDONED PER PATIENT REQUEST 3) Pt will utilize strategies independently in 80% of opportunities to participate fully in ADLs (i.e. working with his phone) and report minimal frustrations. ONGOING Retirement Goals 1) Pt will utilize strategies independently in 100% of opportunities to participate fully in ADLs and report no frustrations that occur. 2) Pt will utilize word retrieval strategies independently to help reduce communication breakdowns. Treatment Activities Collaboration and review of pt 's phone operations re:phone in his memory book. Pt reported that he has been texting, sending pictures, calling/answering the phone and using [employer]. Pt expressed confusion about making/deleting and replying to emails from his family. targeted email composition, making a contacts list and attaching a picture. pt noted that he is still a little confused, but will practice more this week. 2 more sessions scheduled. Assessment Patient Response to Treatment Excellent Rehab Potential Good Impairments Identified Cognitive communication Progress Towards Goals Excellent Progress Assessment of Overall Progress Improving Assessment of Improvement Pt is gaining confidence in his ability to stay in communication with his friends and family. Pt is a and lives alone making these skills important to maintain communication and personal relationships. Pt's family all live in different states all over the [place]. HEP: review procedures/practice with his phone at home daily and noting areas he continues to have difficulty with. Reviewed with Patient Goals,Progress Being Made,Home Exercise Program Patient/Caregiver Understanding Excellent Plan Amount of Therapy Recommended 4 Months Frequency of Treatment Once a Week Length of Session 45 Minutes Therapeutic Contents Cognitive-Linguistic Training, Home Exercise Program Provided Patient/Caregiver Instruction Home Exercise Program,Plan of Care,Questions/Concerns Therapy Recommendations Continue with Current Program
--- NOTE | 2021-11-25 12:15 | ST.OPTN ---
Visit Care Team Role Provider Type Ángel Barton MD Attending Provider Physician Family Provider Primary Care Provider Referring Provider Address: [address] [place] [address], [address], [place], [address] SPINE SURGEON Treatment Note SPINE SURGEON Treatment Note Start: 09/07/21 10:35 Freq: Status: Active Protocol: Document 11/25/21 12:09 LNK (Rec: 11/25/21 12:15 LNK [id number]) Speech Pathology Treatment Note Session Time Visit Start Time 10:30 Visit Stop Time 11:50 Total Visit Minutes 80 Visit Information Visit Number 15 Plan of Care Dates 11/27/2021-12/28/21 Setting Treatment Setting Outpatient Care Visit Type Note Type Treatment Note Next Note Type Next Note Type Treatment Note General Information Patient History Pt reports that about a year prior, he has noticed cognitive difficulties, specifically around short term memory and word retrieval abilities. He reports he has the hardest time following recipes for cooking, remembering names or people, math calculations, and learning/retaining new information. 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 He reports he will often misplace tools and get frustrated trying to find them when he needs them. Pt has no prior history of memory difficulties , but does note his has Alzheimers. He reportedly lives in his home by himself. Pt currently uses a monthly planner/scheduler and hard copies of appointments to remember events. Pt also reported he has a large white board at home with all to-do items ( appointments, grocery lists, etc) that he will check multiple times daily when he needs to. Subjective Observations/Patient Presentation . Chief Complaint(s) Cognitive Patient Knowledge/Awareness of SPINE SURGEON Role Excellent in Treatment Parent/Caretake Knowledge/Awareness of Excellent SPINE SURGEON Role in Treatment Patient/Caregiver Compliance with Home Excellent Exercise Program Objective Short Term Goals 1) Pt will participate in further education re: cognitive abilities, how they affect tasks, and strategies to implement. MET 2) Pt will utilize word retrieval strategies with one verbal cue to help reduce communication breakdowns. ABANDONED PER PATIENT REQUEST 3) Pt will utilize strategies independently in 80% of opportunities to participate fully in ADLs (i.e. working with his phone) and report minimal frustrations. ONGOING Care Transition Mgr Goals 1) Pt will utilize strategies independently in 100% of opportunities to participate fully in ADLs and report no frustrations that occur. 2) Pt will utilize word retrieval strategies independently to help reduce communication breakdowns. Treatment Activities Collaboration and review of pt 's phone operations .Pt reported that he has been having difficulty texting his son. After researching the problem, it was determined that the (orange) Contacts icon is empty. If Vinay TEXTS FROM THERE, His message does not go through. Together, we were able to solve the problem . Vinay created practice 6 texts and 1 email. Pt continues to express confusion about creating and replying to emails from his family. We continue to target email composition, finding his (in phone) contacts list and attaching a picture. pt noted he will practice more this week. 1 more sessions scheduled at this time. Assessment Patient Response to Treatment Excellent Rehab Potential Good Impairments Identified Cognitive communication Progress Towards Goals Excellent Progress Assessment of Overall Progress Improving Assessment of Improvement Pt is gaining confidence in his ability to stay in communication with his friends and family. Pt is a and lives alone making these skills important to maintain communication and personal relationships. Pt's family all live in different [place] all over the [place]. HEP: review procedures/practice with his phone at home daily and noting areas he continues to have difficulty with. Reviewed with Patient Goals,Progress Being Made,Home Exercise Program Patient/Caregiver Understanding Excellent Plan Amount of Therapy Recommended 4 Months Frequency of Treatment Once a Week Length of Session 45 Minutes Therapeutic Contents Cognitive-Linguistic Training, Home Exercise Program Provided Patient/Caregiver Instruction Home Exercise Program,Plan of Care,Questions/Concerns Therapy Recommendations Continue with Current Program
--- NOTE | 2021-11-29 17:19 | ST.OPTN ---
Visit Care Team Role Provider Type Ángel Barton MD Attending Provider Physician Family Provider Primary Care Provider Referring Provider Address: [address] [place] [address], [address], [place], [address] MANAGER PAPER Treatment Note MANAGER PAPER Treatment Note Start: 09/07/21 10:35 Freq: Status: Active Protocol: Document 11/29/21 17:12 LNK (Rec: 11/29/21 17:19 LNK [id number]) Speech Pathology Treatment Note Session Time Visit Start Time 10:30 Visit Stop Time 11:50 Total Visit Minutes 80 Visit Information Visit Number 16 Plan of Care Dates 11/27/2021-12/28/21 Setting Treatment Setting Outpatient Care Visit Type Note Type Treatment Note Next Note Type Next Note Type Treatment Note General Information Patient History Pt reports that about a year prior, he has noticed cognitive difficulties, specifically around short term memory and word retrieval abilities. He reports he has the hardest time following recipies for cooking, remembering names or people, math calculations, and learning/retainng new information. 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 He reports he will often misplace tools and get frustrated trying to find them when he needs them. Pt has no prior history of memory difficulties , but does note his has Alzheimers. He reportedly lives in his home by himself. Pt currently uses a monthly equipment planner and hard copies of appointments to remember events. Pt also reported he has a large whiteboard at home with all to-do items ( appointments, grocery lists, etc) that he will check multiple times daily when he needs to. Subjective Observations/Patient Presentation . Chief Complaint(s) Cognitive Patient Knowledge/Awareness of MANAGER PAPER Role Excellent in Treatment Parent/Caretake Knowledge/Awareness of Excellent MANAGER PAPER Role in Treatment Patient/Caregiver Compliance with Home Excellent Exercise Program Objective Short Term Goals 1) Pt will participate in further education re: cognitive abilities, how they affect tasks, and strategies to implement. MET 2) Pt will utilize word retrieval strategies with one verbal cue to help reduce communication breakdowns. ABANDONED PER PATIENT REQUEST 3) Pt will utilize strategies independently in 80% of opportunities to participate fully in ADLs (i.e. working with his phone) and report minimal frustrations. ONGOING Long-Term Goals 1) Pt will utilize strategies independently in 100% of opportunities to participate fully in ADLs and report no frustrations that occur. 2) Pt will utilize word retrieval strategies independently to help reduce communication breakdowns. Treatment Activities Collaberation and review of pt 's phone operations .Pt reported that he has making a list ogf the steps needed to make/receive phone calls, make /delete texts, bolck unwanted calls, use google Medialets. Pt has demonstrated significant improvementin understanding and proceeding to use his phone to communicate with family who live at a distance. Next session will target email. Assessment Patient Response to Treatment Excellent Rehab Potential Good Impairments Identified Cognitive communication Progress Towards Goals Excellent Progress Assessment of Overall Progress Improving Assessment of Improvement Pt is gaining confidence in his ability to stay in communication with his friends and family. Pt is a and lives alone making these skills important to maintain communication and personal relationships. Pt's family all live in different states all over the [place]. HEP: review procedures/practice with his phone at home daily and noting areas he continues to have difficulty with. Reviewed with Patient Goals,Progress Being Made,Home Exercise Program Patient/Caregiver Understanding Excellent Plan Amount of Therapy Recommended 4 Months Frequency of Treatment Once a Week Length of Session 45 Minutes Therapeutic Contents Cognitive-Linguistic Training, Home Exercise Program Provided Patient/Caregiver Instruction Home Exercise Program,Plan of Care,Questions/Concerns Therapy Recommendations Continue with Current Program
--- NOTE | 2021-11-30 13:59 | ST.OPPOC ---
Physical, Occupational & Speech Therapy At [facility] Visit Care Team Role Provider Type Ángel Barton MD Attending Provider Physician Family Provider Primary Care Provider Referring Provider Address: [address] [place] [address], [address], [place], [address] Speech Pathology Plan of Care Plan of Care Dates 11/30/21-02/05/22 Patient History Pt reports that about a year prior, he has noticed cognitive difficulties, specifically around short term memory and word retrieval abilities. He reports he has the hardest time following recipes for cooking, remembering names or people, math calculations, and learning /retaining new information. 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 He reports he will often misplace tools and get frustrated trying to find them when he needs them. Pt has no prior history of memory difficulties, but does note his has Alzheimers. He reportedly lives in his home by himself. Pt currently uses a monthly tool planner and hard copies of appointments to remember events. Pt also reported he has a large white board at home with all to-do items (appointments, grocery lists, etc) that he will check multiple times daily when he needs to. Impairments Identified Cognitive communication Short Term Goals 1) Pt will participate in further education re: cognitive abilities, how they affect tasks, and strategies to implement. MET 2) Pt will utilize word retrieval strategies with one verbal cue to help reduce communication breakdowns.ABANDONED PER PATIENT REQUEST 3) Pt will utilize strategies independently in 80% of opportunities to participate fully in ADLs (i.e. working with his phone) and report minimal frustrations. ONGOING [facility] Goals 1) Pt will utilize strategies independently in 100% of opportunities to participate fully in ADLs and report no frustrations that occur. 2) Pt will utilize word retrieval strategies independently to help reduce communication breakdowns. Progress Towards Goals Excellent Progress Comment: Electronically Signed by: MILLER Olvera 11/30/21 7441 If you are in agreement with this Plan of Care, please return a signed and dated copy. I have reviewed this Plan of Care and certify that the skilled therapy services above are required to meet the patient?s needs. Physician Signature Date Printed Name and Credentials Clinical Instructor Signature Printed Name and Credentials
--- NOTE | 2022-01-17 16:15 | ST.OPTN ---
Visit Care Team Role Provider Type Ángel Barton MD Attending Provider Physician Family Provider Primary Care Provider Referring Provider Address: [address] [place] [address], [address], [place], [address] CONSULAR OFFICER Treatment Note CONSULAR OFFICER Treatment Note Start: 09/07/21 10:35 Freq: Status: Active Protocol: Document 01/17/22 16:07 LNK (Rec: 01/17/22 16:15 LNK [id number]) Speech Pathology Treatment Note Setting Treatment Setting Outpatient Care Visit Type Note Type Discharge Summary General Information Patient History Pt was seen for cognitive therapy from July 2021 through November 2021. Initially, pt reported that he had noticed cognitive difficulties, specifically around short term memory and word retrieval abilities. Pt has an active lifestyle. He reportedly lives by himself. Pt currently uses a monthly brand planner and hard copies of appointments to remember events. Pt also has a large white board at home with all to -do items (appointments, grocery lists, etc). Subjective Chief Complaint(s) Cognitive Patient/Caregiver Compliance with Home Excellent Exercise Program Objective Short Term Goals 1) Pt will participate in further education re: cognitive abilities, how they affect tasks, and strategies to implement. MET 2) Pt will utilize word retrieval strategies with one verbal cue to help reduce communication breakdowns. ABANDONED PER PATIENT REQUEST 3) Pt will utilize strategies independently in 80% of opportunities to participate fully in ADLs (i.e. working with his phone) and report minimal frustrations. MET Assessment Assessment of Improvement Pt is gaining confidence in his ability to stay in communication with his friends and family. Pt is a and lives alone making these skills important to maintain communication and personal relationships. Pt's family all live in different states all over the [place]. Pt has shown excellent improvement with procedures/practice with his phone at home daily. Pt has not been seen for therapy since 11/30/21 and has self- cancelled all future appointments Plan Amount of Therapy Recommended No Further Therapy Frequency of Treatment No Further Therapy Therapy Recommendations Discharge from Speech Therapy Reason for Discharge Goals met
== END 2022-01-19 08:44 | disposition home or self-care (01) ==
LOC: SP 15:30
PROVIDERS: Family Provider Student in an Organized Health Care Education/Training Program; PCP Student in an Organized Health Care Education/Training Program; Referring Provider Student in an Organized Health Care Education/Training Program; Visit Provider Student in an Organized Health Care Education/Training Program
DX: R41.89 Other symptoms and signs involving cognitive functions and awareness (principal)
CPT/HCPCS: 92507; 96125; 97129; 97130

== ENCOUNTER → 2022-01-06 14:41 | Outpatient (CLI) | payer OTHER, SELFPAY | PROVIDERS: Family Provider Student in an Organized Health Care Education/Training Program; PCP Student in an Organized Health Care Education/Training Program; Visit Provider Registered Nurse | DX: R30.0 Dysuria (principal) | CPT/HCPCS: 87086 ==

== ENCOUNTER → 2022-03-13 14:02 | Outpatient (CLI) | payer OTHER, SELFPAY ==
--- NOTE | 2022-03-13 15:15 | DI.MRI.S_ITS ---
PROCEDURE: MR HEAD/BRAIN WO/W CON INDICATIONS: Unspecified dementia, moderate TECHNIQUE: Noncontrast axial T1 spin echo, axial T2 fast spin echo, sagittal and axial FLAIR, coronal T2 fast spin echo, axial gradient echo, axial diffusion and ADC through the brain. After the administration of contrast, axial and coronal and sagittal T1 spin echo with fat saturation through the brain. COMPARISON: None. FINDINGS: Image quality: Excellent. CSF spaces: Basal cisterns are patent. No extra-axial fluid collections. Ventricles are normal in size and shape. Brain: No midline shift. No intracranial bleeds or masses. No abnormal intracranial enhancement. There is cerebral volume loss for age. There is periventricular white matter chronic small vessel ischemic change. The brainstem appears normal. Diffusion-weighted images demonstrate no acute ischemic insults. No chronic ischemic insults. Normal intravascular flow voids are present. Skull and face: Calvarial marrow is normal in signal. Orbits appear normal. Note is made of bilateral lens replacements. Sinuses: Mucous retention cysts are seen within the maxillary sinuses. Mild scattered areas mucosal thickening can be seen within the paranasal sinuses. There is a small amount right mastoid air cell fluid seen. IMPRESSION: Study within normal limits for age, with note made of age-appropriate brain parenchymal volume loss and chronic small vessel ischemic change. No masses or abnormal enhancement can be seen. No findings of acute or subacute infarction can be seen. Dictated by: Clifford Hernandez M.D. on 03/14/2022 at 9:51 Approved by: Clifford Hernandez M.D. on 03/14/2022 at 9:52
== END ==
PROVIDERS: Family Provider Student in an Organized Health Care Education/Training Program; PCP Student in an Organized Health Care Education/Training Program; Referring Provider Psychiatry & Neurology Neurology; Visit Provider Psychiatry & Neurology Neurology
DX: F03.B0 Unspecified dementia, moderate, without behavioral disturbance, psychotic disturbance, mood disturbance, and anxiety (principal); J34.1 Cyst and mucocele of nose and nasal sinus
CPT/HCPCS: 70553; A9579